=== PATIENT | male | born 1990 | race Caucasian/White ===

== ENCOUNTER → 2018-02-08 | Outpatient (CLI) | payer BC ==
--- NOTE | 2018-02-08 17:11 | DIAGNOSTIC IMAGING REPORT ---
CERVICAL SPINE 5 VIEWS HISTORY: M54.2 Neck pain COMPARISON: None. FINDINGS: The cervical spine is visualized from C1 through the superior endplate of T1. There is no fracture. No subluxation. Straightening of the cervical spine. Minimal disc space narrowing at C5-C6. The neural foramen are widely patent. Prevertebral soft tissues and the atlantodens interval are intact. IMPRESSION: 1. No fracture or subluxation within the cervical spine. 2. Minimal disc space narrowing at C5-C6. 3. Straightening of the cervical spine. Electronically signed by: Noble Thayer M.D. 02/08/2018 5:09 PM Dictated Date/Time: 02/08/2018 5:08 PM
== END | disposition home or self-care (01) ==
LOC: C.RAD1850 16:53
PROVIDERS: ATTEND Internal Medicine
DX: M54.2 Cervicalgia (principal)